=== PATIENT | female | born 1945 | race Caucasian/White ===

== ENCOUNTER 2021-12-09 18:43 | Emergency (ER) | payer OTHER ==
[~2021-12-09] VITALS: Ht 157.5 cm; Wt 136.1 kg
[2021-12-09 19:00] VITALS: BP_SYST 116
--- NOTE | 2021-12-09 19:30 | NUR ---
BIB CARE BLS AMB. C/O SYNCOPAL EPISODE AT HOME WITH FAMILY EST PER FAMILY AOUT 5MIN. PT WAS AT A [facility] FOR OF SON IN October,. REPORT FROM EMT. PT A/O X4 ON ARRIVAL. NO C/O CHAMBERS, DIZZINESS, BLURRED VISION,N/V AT THIS TIME. C/O RIGHT KNEE PAIN. HX; ARTHRITIS, HTN, OBESITY.. TAKES LISINPRIL 20MG BID, LAST TAKEN THIS AM. CARVEDILOL UNK DOSAGE BID, LAST TAKEN THIS AM
[2021-12-09 19:37] VITALS: BP_SYST 123
[2021-12-09 19:54] LABS: ANION GAP 5 (5-15); CALCIUM 8.9 mg/dL (8.4-11.0); CHLORIDE 102 mmol/L (98-107); CREATININE 1.17 mg/dL (0.55-1.30); GLUCOSE 158 mg/dL (70-99); POTASSIUM 4.4 mmol/L (3.5-5.1); SODIUM SERUM 138 mmol/L (136-145); UREA NITROGEN, BLOOD 15 mg/dL (8-21)
[2021-12-09 19:55] LABS: BASOPHILS % (AUTO) 0.4 % (0.0-2.0); EOSINOPHILS # (AUTO) 0.2 K/uL (0.0-0.4); EOSINOPHILS % (AUTO) 1.6 % (0.0-4.0); HEMATOCRIT 45.6 % (36-48); HEMOGLOBIN 15.5 g/dL (12.0-16.0); LYMPHOCYTES # (AUTO) 1.4 K/uL (1.0-5.5); LYMPHOCYTES % (AUTO) 14.1 % (20.5-51.5); MEAN CORPUSCULAR HEMOGLOBIN 34 pg (27-31); MEAN CORPUSCULAR HGB CONC 34 % (32-36); MEAN CORPUSCULAR VOLUME 100 fL (79.0-98.0); MONOCYTES # (AUTO) 0.5 K/uL (0.0-1.0); MONOCYTES % (AUTO) 5.2 % (1.7-9.3); NEUTROPHILS % (AUTO) 78.7 % (40.0-70.0); PLATELET COUNT (AUTO) 212 K/uL (130-430); RED BLOOD CELL COUNT(AUTO) 4.54 MIL/uL (4.2-6.2); RED CELL DISTRIBUTION WIDTH 14.1 % (9.0-15.0); WHITE BLOOD COUNT (AUTO) 10.2 K/uL (4.8-10.8)
[2021-12-09] MEDS ORDERED: LISI20TA PO (20:01)
[2021-12-09] MEDS ORDERED: CARV10CP7 PO (20:01)
[2021-12-09 20:03] LABS: ALANINE AMINOTRANSFERASE 43 U/L (12-78); ALBUMIN 2.9 g/dL (3.4-4.8); ASPARTATE AMINOTRANSFERASE 39 U/L (10-37); TOTAL BILIRUBIN 0.5 mg/dL (0.0-1.0)
--- NOTE | 2021-12-09 20:32 | NUR ---
BED [address]
--- NOTE | 2021-12-09 21:00 | NUR ---
RETURNED FROM CT SCAN WITH DAIRY LABORATORY TECHNICIAN
--- NOTE | 2021-12-09 23:00 | NUR ---
PT SITTING UP ON [place] EATING PT CARE MEAL. NO C/O DISCOMFORT AT THIS TIME. CONTINUED MONITORING
--- NOTE | 2021-12-10 00:21 | NUR ---
PT LAYING IN POSTION OF COMFORT ON LEFT SIDE. VSS. NO C/O PAIN/ DISCOMFORT AT THIS TIME. FAN PLACED IN ROOM FOR PT'S COMFORT. "IT'S TOO HOT IN HERE!". PT PENDING DISHARGE VIA 1ST RESCUE BLS FOR TRANPORT BACK HOME/ FAMILY AT 1000 12/09/21. CONTINUED MONITORING.
--- NOTE | 2021-12-10 02:55 | NUR ---
PT SLEEPING. RESP EVEN AND UNLABORED. CONTINUED OBSERVATIONS
--- NOTE | 2021-12-10 06:14 | NUR ---
PT RESTING COMFORTABLY. NO C/O PAIN OR DISCOMFORT AT THIS TIME. CONTINUED MONITORING
[2021-12-10 06:15] VITALS: BP_SYST 125
--- NOTE | 2021-12-10 07:18 | NUR ---
RECEIVED PT AT THIS TIME, PT AWAITING TRANSPORT BACK HOME, RESTING IN BED APPEARS TO BE IN NO ACUTE DISTRESS NOTED AT THIS TIME.
--- NOTE | 2021-12-10 10:18 | NUR ---
A/OX4 121/58., PULSE 78 RR 28, 96% RA, VERBALIZED UNDERTANDING OF DC INSTRUCTIONS, ALL QUESTIONS ANSWERED, FIRST RESCUE.
== END 2021-12-10 16:00 | disposition home or self-care (01) ==
LOC: SED 18:43
DX: R55 Syncope and collapse (principal); R42 Dizziness and giddiness; Z79.899 Other long term (current) drug therapy
CPT/HCPCS: 36415; 70450-TC; 71045; 76376; 80053; 82550; 83605; 84484; 85025; 93005; 99285